=== PATIENT | female | born 1990 | race African-American/Black ===

== ENCOUNTER 2020-04-24 09:07 | Inpatient (IN) | payer OTHER ==
--- NOTE | 2020-04-24 09:49 | HP ---
Past Medical History - Primary Care Physician PCP:: Azeem Hanson - Admission Chief Complaint: SROM @ 5am this morning. c/o painful UC History of Present Illness: 29 yo EDC 2019, EGA 38.6wks presents to c/o painful UC and SROM @ 5 am this morning PNC Dr Hanson Tristin - Dr Stokes : grade 3 placenta ; f/u wkly with [facility] History Source: Patient Limitations to Obtaining History: No Limitations (R/O PIH) - Past Medical History ...: 1 ...Para: 0 ... Weeks Gestation by Dates: 38 ...EDC by Dates: 05/06/20 - Past Surgical History Hx Myomectomy: No Hx Transabdominal Cerclage: No - Smoking History Smoking history: Never smoked Have you smoked in the past 12 months: No - Alcohol/Substance Use Hx Alcohol Use: No History of Substance Use: reports: None - Social History Usual Living Arrangement: Yes: With Significant Other History of Recent Travel: No Home Medications - Allergies Allergies/Adverse Reactions: Allergies Allergy/AdvReac Type Severity Reaction Status Date / Time No Known Allergies Allergy Verified 04/24/20 09:51 Family Medical History Family Hx Cardiac Disorders: Mother, Father Review of Systems - Review of Systems Constitutional: reports: No Symptoms Eyes: reports: No Symptoms HENT: reports: No Symptoms Neck: reports: No Symptoms Cardiovascular: reports: No Symptoms Respiratory: reports: No Symptoms Gastrointestinal: reports: No Symptoms Genitourinary: reports: Pain Breasts: reports: No Symptoms Reported Musculoskeletal: reports: No Symptoms Integumentary: reports: No Symptoms Neurological: reports: No Symptoms Endocrine: reports: No Symptoms Hematology/Lymphatic: reports: No Symptoms Psychiatric: reports: No Symptoms Physical Exam - Maternity Constitutional: Yes: Well Nourished, Anxious Eyes: Yes: WNL, Occular Prosthesis Neck: Yes: WNL Cardiovascular: Yes: WNL - Abdominal Exam/OB Fundal Height: 38 Number of Fetuses: Single Presentation: Vertex Contractions: Yes Regularity: Regular Intensity: Moderate Monitor Mode: External Heart Rate (range): 130 Heart Rate Location: [facility] Category: I Accelerations: Uniform Decelerations: None - Vaginal Exam/OB Vaginal Bleeding: No Dilatation (cm): 1 Effacement (%): 90 Amniotic Membrane Status: Ruptured Amniotic Fluid: Yes: Clear Presentation: Vertex/Position Station: -1 - Physical Exam Musculoskeletal: Yes: WNL Edema: No Integumentary: Yes: WNL Deep Tendon Reflex Grade: Normal +2 Psychiatric: Yes: WNL Hemorrhage Risk Assessment - Risk Factors Risk Score: 1 Risk Level: Medium Risk Problem List - Problems (1) SROM (spontaneous rupture of membranes) Code(s): NFD3384 - (2) 38 weeks gestation of Code(s): Z3A.38 - 38 WEEKS GESTATION OF Assessment/Plan Admit to ld Anticipate
[2020-04-24] MEDS ORDERED: ELECTROLYTE-148 SOLN 1,000 ML IV SCH ×2 (10:00→11:30)
[2020-04-24 10:43] VITALS: BMI 29.1
--- NOTE | 2020-04-24 11:26 | PN ---
Progress Note (short form) - Note Progress Note: Attending note: patient uncomfortable, not tolerating contractions well cat one tracin Base line/ moderate variability/ acc/ no decelerations/ contractions q 3 min cervix= 1-2 cm/ 90%/_2 I/P: SROM/ discussed pain management; including epidural
[2020-04-24] MEDS ORDERED: AMPICILLIN SODIUM 1 GM VIAL ONE ×3 (11:30→23:53)
[2020-04-24] MEDS: AMPICILLIN - 1 GM in SODIUM CHLORIDE 100 ML IVPB SCH ×3 (11:37→17:30)
[2020-04-24 12:36] LABS: BASO % 0.3 % (0-2.0); EOS % 0.1 % (0-4.5); HEMATOCRIT 36.2 % (32.4-45.2); HEMOGLOBIN 12.1 GM/dL (10.7-15.3); MCH 32.1 pg (25.7-33.7); MCHC 33.4 g/dl (32.0-36.0); MEAN PLT VOLUME 10.2 fl (7.5-11.1); MONO % 5.6 % (3.8-10.2); PLATELET COUNT 235 K/MM3 (134-434); RBC 3.77 M/mm3 (3.60-5.2); RDW 14.5 % (11.6-15.6); WHITE BLOOD COUNT 12.2 K/mm3 (4.0-10.0)
[2020-04-24 12:41] LABS: INR 0.86 (0.83-1.09); PROTHROMBIN TIME (PATIENT) 10.1 SEC (9.7-13.0)
[2020-04-24 12:44] LABS: ACTIVATED PTT 28.8 SECONDS (25.2-36.5)
[2020-04-24 12:48] LABS: BLOOD UREA NITROGEN 7.2 mg/dL (7-18); CREATININE 0.6 mg/dL (0.55-1.3); POTASSIUM 4.2 mmol/L (3.5-5.1)
[2020-04-24] MEDS ORDERED: BUTORPHANOL TARTRATE 1 MG/ML VIAL ONE ×2 (13:14)
[2020-04-24] MEDS ORDERED: PROMETHAZINE HCL 25 MG/1 ML VIAL ONE (13:15)
--- NOTE | 2020-04-24 13:31 | PN ---
Progress Note (short form) - Note Progress Note: Attending note: patient requesting pain medications; declines epidural at this point still category one tracing cervix= 2 cm/ 90%/ -2 I/P: will medicate iv
[2020-04-24] MEDS ORDERED: OXYTOCIN 30 UNITS in 0.9% NS 30 UNIT/500 ML INFUS.BAG IVPB SCH (15:00)
[2020-04-24] MEDS ORDERED: AMPICILLIN - 1 GM in SODIUM CHLORIDE 100 ML IVPB SCH (15:30)
[2020-04-24] MEDS ORDERED: BUTORPHANOL TARTRATE 1 MG/ML VIAL IVPB ONE (16:00)
[2020-04-24] MEDS ORDERED: PROMETHAZINE HCL 25 MG/1 ML VIAL IVPB ONE (16:00)
--- NOTE | 2020-04-24 19:07 | PN ---
Progress Note (short form) - Note Progress Note: Attending note: patient requesting epidural; received stadol with good pain control cervix= 2-3 cm/ 100%/ -2 baseline= 120/mod variability/ acc/ variable dec x 1 I/P: continue VELMA; epidural
[2020-04-24] MEDS ORDERED: FENTANYL/BUPIVACAINE/NS/PF - PCEA - 50 ML DISP.SYRIN EP ONE (19:43)
[2020-04-24] MEDS ORDERED: BUPIVACAINE HCL/PF 0.25% (2.5MG/ML) 10 ML VIAL ONE (20:07)
[2020-04-24] MEDS ORDERED: NALOXONE HCL 0.4 MG/ML VIAL IVPUSH PRN (21:33)
[2020-04-24] MEDS ORDERED: FENTANYL/BUPIVACAINE/NS/PF - PCEA - 50 ML DISP.SYRIN EP SCH (21:45)
--- NOTE | 2020-04-24 23:52 | PN ---
Progress Note (short form) - Note Progress Note: variable deceleration cervix at 5 cm/ 100%/ -1 internal electrode placed; FHR recovered continue VELMA
[2020-04-24] MEDS ORDERED: SODIUM CHLORIDE 100 ML IVPB ONE (23:53)
[2020-04-25] MEDS ORDERED: LIDOCAINE HCL 1% PRESERVATIVE FREE - 30ML VIAL ONE (01:07)
[2020-04-25] MEDS ORDERED: OXYTOCIN 20 UNITS in 0.9% NS 20 UNIT/1,000 ML INFUS.BAG IV ONE ×2 (01:07→04:47)
[2020-04-25] MEDS ORDERED: BISACODYL 10 MG SUPP.RECT RC PRN (02:23)
[2020-04-25] MEDS ORDERED: METHYLERGONOVINE MALEATE 0.2 MG/1 ML AMP IM PRN (02:23)
[2020-04-25] MEDS ORDERED: BENZOCAINE 28 GM HEMORRHOIDAL OINTMENT TP PRN (02:23)
[2020-04-25] MEDS ORDERED: BENZOCAINE 20% 57 GM BOTTLE TP PRN (02:23)
--- NOTE | 2020-04-25 02:29 | PN ---
Delivery - Delivery Vaginal Delivery: No Problems ( of live baby boy; OA position, compound presentation, CAN x 1 tight and cut prior to delivery of bodyl placenta complete with succenturiate lobe; RML episiotomy with repaired under local) Type of Anesthesia: Local, Epidural Episiotomy/Laceration: Right Mediolateral EBL (cc): 350 Delivery, Single - [place] Feeding Plan Initial Plan: Elected not to breastfeed exclusively throughout hospitalization
[2020-04-25] MEDS ORDERED: D5W-LR W/ 20 UNITS OXYTOCIN 20 UNIT/1,000 ML INFUS.BAG IV SCH (02:30)
[2020-04-25] MEDS ORDERED: PCA PUMP NR ONE (04:47)
[2020-04-25] MEDS ORDERED: SODIUM CHLORIDE 100 ML IVPB ONE ×2 (06:31→08:53)
[2020-04-25] MEDS ORDERED: AMPICILLIN SODIUM 1 GM VIAL ONE ×2 (06:31→08:53)
[2020-04-25] MEDS: WITCH HAZEL 50% (TUCKS) 40 PAD/JAR PAD TP PRN (06:36)
[2020-04-25] MEDS: AMPICILLIN - 1 GM in SODIUM CHLORIDE 100 ML IVPB SCH ×2 (06:37→09:21)
[2020-04-25] MEDS: IBUPROFEN 600 MG TABLET (FP) PO PRN ×2 (09:18→17:14)
[2020-04-25] MEDS: PRENATAL VITAMINS W/ FOLIC ACID TABLET (FP) PO SCH (09:18)
[2020-04-25] MEDS: ACETAMINOPHEN 325 MG TABLET (FP) PO PRN ×2 (09:19→17:16)
[2020-04-25] MEDS: NITROFURANTOIN MACROCRYSTAL 50 MG CAPSULE (FP) PO SCH ×2 (15:08→22:01)
[2020-04-26 01:17] VITALS: TEMP 98.1
[2020-04-26 08:37] LABS: BASO % 0.2 % (0-2.0); EOS % 0.6 % (0-4.5); HEMATOCRIT 31.8 % (32.4-45.2); HEMOGLOBIN 10.3 GM/dL (10.7-15.3); LYMPH % 19.8 % (8-40); MCH 31.3 pg (25.7-33.7); MCHC 32.5 g/dl (32.0-36.0); MEAN CELL VOLUME 96.3 fl (80-96); MEAN PLT VOLUME 9.1 fl (7.5-11.1); NEUT % 73.4 % (42.8-82.8); PLATELET COUNT 216 K/MM3 (134-434); RBC 3.31 M/mm3 (3.60-5.2); RDW 14.5 % (11.6-15.6); WHITE BLOOD COUNT 11.1 K/mm3 (4.0-10.0)
[2020-04-26] MEDS: IBUPROFEN 600 MG TABLET (FP) PO PRN (08:47)
[2020-04-26] MEDS: ACETAMINOPHEN 325 MG TABLET (FP) PO PRN (08:48)
[2020-04-26] MEDS: WITCH HAZEL 50% (TUCKS) 40 PAD/JAR PAD TP PRN (08:48)
[2020-04-26] MEDS: PRENATAL VITAMINS W/ FOLIC ACID TABLET (FP) PO SCH (09:27)
[2020-04-26] MEDS: NITROFURANTOIN MACROCRYSTAL 50 MG CAPSULE (FP) PO SCH (09:27)
--- NOTE | 2020-04-26 09:28 | DS ---
Physical Exam-MACHINE SEWER Vital Signs: Vital Signs Temperature 98.1 F 04/25/20 22:00 Pulse Rate 82 04/25/20 22:00 Respiratory Rate 20 04/25/20 22:00 Blood Pressure 133/82 04/25/20 22:00 O2 Sat by Pulse Oximetry (%) 100 04/25/20 02:45 Labs: CBC, BMP 04/26/20 07:35 04/24/20 11:15 Delivery - Delivery Vaginal Delivery: No Problems ( of live baby boy; OA position, compound pres entation, CAN x 1 tight and cut prior to delivery of bodyl placenta complete with succenturiate lobe; RML episiotomy with repaired under local) Type of Anesthesia: Epidural Episiotomy/Laceration: Right Mediolateral EBL (cc): 350 Delivery, Single - Stages of Labor Date 1st Stage Initiatied: 04/24/20 Time 1st Stage Initiated: 05:00 Date 2nd Stage Initiated: 04/25/20 Time 2nd Stage Initiated: 01:15 Date of Delivery: 04/25/20 Time of Delivery: 01:41 Time Placenta Delivered: 01:55 - Condition of Infant Servomechanism Designer/Interface Developer Present: No Infant Gender: Male Weight: 2.523 kg Position: Right, OA Total Hours ROM (Hrs/Mins): 20h 41m - 1 Minute Total Score: 9 5 Minutes Total Score: 9 - [place] Feeding Plan Initial Plan: Elected not to breastfeed exclusively throughout hospitalization Remarks - Remarks Remarks: pt. without complaints. requesting d/c to home today vss -af abd: soft, nt, nd. fundus firm ve: min lochia. intact ext: no calf tenderness b/l a/p ppd 1 s/p pt. doing well plan for d/c to home today f/u w pmd 4 weeks in office Discharge Summary Problems reviewed: Yes Reason For Visit: INDUCTION OF LABOR Current Active Problems 38 weeks gestation of (Acute) SROM (spontaneous rupture of membranes) (Acute) Procedures: Principal: Hospital Course: pt. admitted in labor underwent uncomplicated PP course uneventful d/c to home ppd1 as per pt. preference - Instructions Diet, Activity, Other Instructions: regular diet, activity as tolerated, but avoid strenuous activity, heavy lifting and intercourse. pericare f/u w Dr. Hanson 4 weeks for PP check Disposition: HOME - Home Medications Comprehensive Discharge Medication List: Ambulatory Orders Vit 93/Iron Fum/Folic [ Formula Tablet] 1 each PO DAILY 04/24/20
[2020-04-26 10:52] VITALS: BP 119/84; PULSE 85
[2020-04-26] MEDS ORDERED: SENNOSIDES/DOCUSATE COMBO (SENNA PLUS) TABLET (UD) PO PRN (22:00)
== END 2020-04-26 12:45 | disposition home or self-care (01) | DRG 560 ==
LOC: JLDR 09:07 → J3W 04-25 05:30
PROVIDERS: ADMIT Obstetrics & Gynecology; ATTEND Obstetrics & Gynecology
PROC: 0W8NXZZ Division of Female Perineum, External Approach (ICD-10-PCS; principal; 2020-04-25)
PROC: 10E0XZZ Delivery of Products of Conception, External Approach (ICD-10-PCS; 2020-04-25)
DX: O69.81X0 Labor and delivery complicated by cord around neck, without compression, not applicable or unspecified (principal); Z3A.38 38 weeks gestation of pregnancy; Z37.0 Single live birth
CPT/HCPCS: 36415; 59409; 80048; 85025; 85610; 85730; 86780; 86850; 86900; 86901; 87389; U0003